=== PATIENT | male | born 1980 | race Native Hawaiian/Other Pacific Islander ===

== ENCOUNTER 2017-10-27 12:35 | Emergency (ER) | payer OTHER ==
[~2017-10-27] VITALS: Ht 177.8 cm; Wt 93.0 kg
[2017-10-27 12:35] VITALS: TEMP 97.5
[~2017-10-27 12:35] MED LIST: OMEP20CA PO; TRAM50TA PO; ZESTRIL40 MG PO
[2017-10-27 13:20] LABS: PLATELET COUNT 200 K/uL (142-355)
[2017-10-27 14:15] VITALS: BP 160/94
== END 2017-10-27 14:25 | disposition home or self-care (01) ==
LOC: ED 12:35
PROVIDERS: Specialist
DX: S61.230A Puncture wound without foreign body of right index finger without damage to nail, initial encounter (principal); L03.011 Cellulitis of right finger; W45.8XXA Other foreign body or object entering through skin, initial encounter
CPT/HCPCS: 36415; 85027; 85651; 96372; 99283; J0690

== ENCOUNTER 2017-10-30 11:05 | Inpatient (IN) | payer OTHER ==
[~2017-10-30] VITALS: Ht 177.8 cm; Wt 93.5 kg
[2017-10-30 11:12] VITALS: BP 169/119; TEMP 97.7
[2017-10-30 13:02] LABS: PLATELET COUNT 227 K/uL (142-355)
[2017-10-30 13:12] VITALS: BP 142/91
[2017-10-30 17:15] VITALS: BP 160/90; TEMP 98.3; Ht 177.8 cm; Wt 93.5 kg
[2017-10-30 20:00] VITALS: BP 115/100; TEMP 97.8
[2017-10-31] VITALS: BP 162/97; TEMP 98.2
[2017-10-31 04:00] VITALS: BP 153/99; TEMP 97.7
[2017-10-31 08:00] VITALS: BP 145/99; TEMP 97.8
[2017-10-31 12:00] VITALS: BP 149/88; TEMP 97.6
[2017-10-31 16:00] VITALS: BP 139/88; TEMP 98.1
[2017-10-31 20:00] VITALS: BP 130/82; TEMP 98.1
[2017-11-01] VITALS: BP 149/87; TEMP 97.6
[2017-11-01 04:00] VITALS: BP 172/99; TEMP 97.9
[2017-11-01 08:02] VITALS: BP 136/89; TEMP 98.1
== END 2017-11-01 13:46 | disposition home or self-care (01) | DRG 603 ==
LOC: ED 11:05 → MED/SURG 12:00
PROVIDERS: ADMIT Family Medicine
DX: L03.011 Cellulitis of right finger (principal); L02.511 Cutaneous abscess of right hand; B95.62 Methicillin resistant Staphylococcus aureus infection as the cause of diseases classified elsewhere; I10 Essential (primary) hypertension
CPT/HCPCS: 36415; 36591; 80053; 80202; 85027; 87070; 87077; 87185; 87186; 87205; 96365; 96366; 96367; 96372; 96375; 99284; J1644; J1885; J2270; J3370

== ENCOUNTER 2017-12-25 11:13 | Emergency (ER) | payer OTHER ==
[~2017-12-25] VITALS: Ht 177.8 cm; Wt 94.3 kg
[2017-12-25 11:20] VITALS: TEMP 98.2
[2017-12-25 13:30] LABS: PLATELET COUNT 186 K/uL (142-355)
[2017-12-25 13:50] LABS: POTASSIUM 3.6 mmol/L (3.6-5.2)
[2017-12-25 14:40] VITALS: BP 128/92
== END 2017-12-25 14:45 | disposition home or self-care (01) ==
LOC: ED 11:13
PROVIDERS: Family Medicine
DX: M54.9 Dorsalgia, unspecified (principal)
CPT/HCPCS: 80048; 85027; 96372; 99283; J1885

== ENCOUNTER 2019-01-27 13:48 | Emergency (ER) | payer OTHER ==
[~2019-01-27] VITALS: Ht 177.8 cm; Wt 96.2 kg
[2019-01-27 15:14] LABS: PLATELET COUNT 194 K/uL (142-355)
[2019-01-27 15:30] LABS: POTASSIUM 3.8 mmol/L (3.6-5.2)
[2019-01-27 20:23] VITALS: BP 123/87; TEMP 98.8
[2019-01-28] MEDS ORDERED: BUPR8SUB2 PO ×2 (18:45)
[2019-01-28] MEDS ORDERED: AMLODIPINE BESYLATE PO ×2 (18:45)
[2019-01-30] MEDS ORDERED: AMLODIPINE BESYLATE PO ×2 (15:19)
[2019-01-30] MEDS ORDERED: BUPR8SUB2 PO ×2 (15:20)
== END 2019-01-27 20:23 | disposition home or self-care (01) ==
LOC: ED 13:48
PROVIDERS: Family Medicine
DX: R10.13 Epigastric pain (principal); R11.2 Nausea with vomiting, unspecified; K76.0 Fatty (change of) liver, not elsewhere classified; M47.816 Spondylosis without myelopathy or radiculopathy, lumbar region
CPT/HCPCS: 36415; 80053; 80307; 80320; 81000; 82150; 83690; 85027; 96372; 99283; J1885

== ENCOUNTER 2019-01-27 18:24 | Outpatient (CLI) | payer OTHER ==
[2019-01-28] MEDS ORDERED: AMLODIPINE BESYLATE PO ×2 (18:45)
[2019-01-28] MEDS ORDERED: BUPR8SUB2 PO ×2 (18:45)
[2019-01-30] MEDS ORDERED: AMLODIPINE BESYLATE PO ×2 (15:19)
[2019-01-30] MEDS ORDERED: BUPR8SUB2 PO ×2 (15:20)
== END 2019-01-27 18:44 | disposition short-term general hospital (02) ==
LOC: AMB 18:24
DX: R10.10 Upper abdominal pain, unspecified (principal)
CPT/HCPCS: A0425; A0426

== ENCOUNTER 2019-01-28 15:00 | Observation (INO) | payer OTHER ==
[~2019-01-28] VITALS: Ht 177.8 cm; Wt 94.5 kg
[2019-01-28 16:48] VITALS: BP 138/93; TEMP 97.8
[2019-01-28 18:33] VITALS: BP 138/93; TEMP 97.8; Ht 177.8 cm; Wt 94.5 kg
[2019-01-28] MEDS ORDERED: AMLODIPINE BESYLATE PO ×2 (18:45)
[2019-01-28] MEDS ORDERED: BUPR8SUB2 PO ×2 (18:45)
[2019-01-28 20:00] VITALS: BP 110/81; TEMP 98
[2019-01-28 23:59] VITALS: BP 99/56; TEMP 97.8
[2019-01-29 04:00] VITALS: BP 120/78; TEMP 98.1
[2019-01-29 08:00] VITALS: BP 134/85; TEMP 97.4
[2019-01-29 08:56] LABS: PLATELET COUNT 161 K/uL (142-355)
[2019-01-29 09:11] LABS: POTASSIUM 4.2 mmol/L (3.6-5.2)
[2019-01-29 12:00] VITALS: BP 142/77; TEMP 98.2
[2019-01-29 16:00] VITALS: BP 128/79; TEMP 97.8
[2019-01-30] MEDS ORDERED: AMLODIPINE BESYLATE PO ×2 (15:19)
[2019-01-30] MEDS ORDERED: BUPR8SUB2 PO ×2 (15:20)
== END 2019-01-29 18:01 | disposition home or self-care (01) ==
LOC: MED/SURG 15:00
PROVIDERS: ADMIT Internal Medicine
DX: R11.2 Nausea with vomiting, unspecified (principal); R53.1 Weakness
CPT/HCPCS: 80048; 85027; 86803; 99220; G0378; G0379; J2550

== ENCOUNTER 2019-02-11 13:27 | Outpatient (CLI) | payer OTHER ==
[~2019-02-11 13:27] MED LIST changes: +AMLODIPINE BESYLATE PO; +BUPR8SUB2 PO
== END 2019-02-11 19:23 | disposition home or self-care (01) ==
LOC: RAD 13:27
DX: T14.90XA Injury, unspecified, initial encounter (principal); R52 Pain, unspecified; R22.9 Localized swelling, mass and lump, unspecified; L53.9 Erythematous condition, unspecified

== ENCOUNTER 2019-02-26 07:44 | Day surgery (SDC) | payer OTHER ==
[~2019-02-26] VITALS: Ht 30.5 cm; Wt 0.5 kg
== END 2019-02-26 10:45 | disposition home or self-care (01) ==
LOC: OR 07:44
PROC: 0DB68ZZ Excision of Stomach, Via Natural or Artificial Opening Endoscopic (ICD-10-PCS; principal; 2019-02-26)
DX: K29.50 Unspecified chronic gastritis without bleeding (principal); R11.2 Nausea with vomiting, unspecified; K44.9 Diaphragmatic hernia without obstruction or gangrene; R10.84 Generalized abdominal pain; K21.9 Gastro-esophageal reflux disease without esophagitis
CPT/HCPCS: 80074; 87522; 87535; G0432; J2001; J2250; J2405; J2704

== ENCOUNTER 2019-04-15 10:32 | Day surgery (SDC) | payer OTHER | END 2019-04-15 15:35 | disposition home or self-care (01) | LOC: OR 10:32 | PROC: 0DJD8ZZ Inspection of Lower Intestinal Tract, Via Natural or Artificial Opening Endoscopic (ICD-10-PCS; principal; 2019-04-15) | DX: K64.8 Other hemorrhoids (principal); K92.1 Melena; R19.4 Change in bowel habit; K59.00 Constipation, unspecified | CPT/HCPCS: J2001; J2250; J2704 ==

== ENCOUNTER 2020-05-17 00:47 | Emergency (ER) | payer OTHER ==
[~2020-05-17] VITALS: Ht 177.8 cm; Wt 95.3 kg
[2020-05-17 04:34] VITALS: BP 130/85; TEMP 98.5
== END 2020-05-17 04:34 | disposition home or self-care (01) ==
LOC: ED 00:47
DX: M25.552 Pain in left hip (principal); G89.29 Other chronic pain; M70.72 Other bursitis of hip, left hip
CPT/HCPCS: 96372; 99283; J1885; J2930

== ENCOUNTER 2020-10-27 08:08 | Emergency (ER) | payer OTHER ==
[~2020-10-27] VITALS: Ht 177.8 cm; Wt 95.3 kg
[2020-10-27 08:16] VITALS: BP 159/102; TEMP 98.1
[2020-10-27 08:53] LABS: POTASSIUM 4.5 mmol/L (3.6-5.2)
[2020-10-27 09:01] LABS: PARTIAL THROMBOPLASTIN TIME 22.5 SECONDS (24.5-33.6)
[2020-10-27 09:14] LABS: PLATELET COUNT 132 K/uL (142-355)
== END 2020-10-27 11:30 | disposition home or self-care (01) ==
LOC: ED 08:08
PROVIDERS: Hospitalist
DX: N39.0 Urinary tract infection, site not specified (principal); N13.2 Hydronephrosis with renal and ureteral calculous obstruction; F15.10 Other stimulant abuse, uncomplicated
CPT/HCPCS: 36415; 80053; 80307; 81000; 85027; 85610; 85730; 87077; 87086; 87088; 87186; 96360; 96361; 96365; 96366; 96375; 99284; J1170; J1885; J1956; J2405

== ENCOUNTER 2020-12-30 06:33 | Emergency (ER) | payer OTHER ==
[~2020-12-30] VITALS: Ht 177.8 cm; Wt 95.3 kg
[2020-12-30 06:46] VITALS: TEMP 97.2
[2020-12-30 07:16] LABS: PLATELET COUNT 191 K/uL (142-355)
[2020-12-30 07:23] LABS: POTASSIUM 3.5 mmol/L (3.6-5.2)
[2020-12-30 07:44] LABS: PARTIAL THROMBOPLASTIN TIME 23.9 SECONDS (24.5-33.6)
[2020-12-30 09:54] VITALS: BP 114/72
== END 2020-12-30 09:55 | disposition home or self-care (01) ==
LOC: ED 06:33
PROVIDERS: Hospitalist
DX: R10.84 Generalized abdominal pain (principal)
CPT/HCPCS: 80053; 81000; 85027; 85610; 85730; 96360; 96374; 99284; J1170; J1885; J2405

== ENCOUNTER 2021-01-02 02:36 | Emergency (ER) | payer OTHER ==
[~2021-01-02] VITALS: Ht 177.8 cm; Wt 95.3 kg
[2021-01-02 03:08] VITALS: BP 127/75; TEMP 98.1
== END 2021-01-02 03:08 | disposition home or self-care (01) ==
LOC: ED 02:36
DX: M25.551 Pain in right hip (principal); G89.29 Other chronic pain
CPT/HCPCS: 96372; 99282; 99283; J1885; J2930

== ENCOUNTER 2021-02-16 08:16 | Emergency (ER) | payer OTHER ==
[~2021-02-16] VITALS: Ht 177.8 cm; Wt 95.3 kg
[2021-02-16 08:20] VITALS: TEMP 98.7
[2021-02-16 09:21] VITALS: BP 128/84
== END 2021-02-16 09:05 | disposition home or self-care (01) ==
LOC: ED 08:16
DX: M54.41 Lumbago with sciatica, right side (principal)
CPT/HCPCS: 96372; 99282; J1885

== ENCOUNTER 2021-05-26 04:58 | Emergency (ER) | payer OTHER ==
[~2021-05-26] VITALS: Ht 177.8 cm; Wt 95.3 kg
[2021-05-26 05:00] VITALS: TEMP 98.6
[2021-05-26 05:39] LABS: PLATELET COUNT 255 K/uL (142-355)
[2021-05-26 05:48] LABS: POTASSIUM 4.2 mmol/L (3.6-5.2)
[2021-05-26 07:39] VITALS: BP 117/83
== END 2021-05-26 07:43 | disposition home or self-care (01) ==
LOC: ED 04:58
PROVIDERS: Emergency Medicine
DX: R41.0 Disorientation, unspecified (principal); R82.5 Elevated urine levels of drugs, medicaments and biological substances; N17.8 Other acute kidney failure; S92.514A Nondisplaced fracture of proximal phalanx of right lesser toe(s), initial encounter for closed fracture; W22.8XXA Striking against or struck by other objects, initial encounter; Y92.89 Other specified places as the place of occurrence of the external cause
CPT/HCPCS: 36415; 80053; 80307; 80320; 84484; 85027; 93005; 96360; 99284

== ENCOUNTER 2022-09-19 09:14 | Emergency (ER) | payer OTHER ==
[~2022-09-19] VITALS: Ht 177.8 cm; Wt 93.9 kg
[2022-09-19 09:17] VITALS: TEMP 98.4
[2022-09-19 10:12] LABS: PLATELET COUNT 207 K/uL (142-355)
[2022-09-19 10:20] LABS: POTASSIUM 3.3 mmol/L (3.6-5.2)
[2022-09-19 12:45] VITALS: BP 145/94
== END 2022-09-19 12:45 | disposition home or self-care (01) ==
LOC: ED 09:14
PROVIDERS: Emergency Medicine Emergency Medical Services
PROC: 0RSKXZZ Reposition Left Shoulder Joint, External Approach (ICD-10-PCS; principal; 2022-09-19)
DX: R56.9 Unspecified convulsions (principal); S42.252A Displaced fracture of greater tuberosity of left humerus, initial encounter for closed fracture; X58.XXXA Exposure to other specified factors, initial encounter; Y92.89 Other specified places as the place of occurrence of the external cause
CPT/HCPCS: 36415; 80053; 80320; 83735; 85027; 93005; 96361; 96365; 99285; J0360; J1885; J1953

== ENCOUNTER 2023-09-09 21:46 | Emergency (ER) | payer OTHER ==
[~2023-09-09] VITALS: Ht 177.8 cm; Wt 93.0 kg
[2023-09-09 22:57] LABS: PLATELET COUNT 107 K/uL (142-355)
[2023-09-09 22:59] LABS: POTASSIUM 3.5 mmol/L (3.6-5.2)
[2023-09-10] MEDS ORDERED: ZESTRIL40 MG PO (01:36)
[2023-09-10] MEDS ORDERED: PHENYTOIN EX100 MG PO (01:36)
[2023-09-10] MEDS ORDERED: CYCL10TA35 PO (02:11)
[2023-09-10] MEDS ORDERED: KETO10TA34 PO (02:11)
[2023-09-10 02:40] VITALS: BP 138/86; TEMP 98.1
== END 2023-09-10 02:40 | disposition home or self-care (01) ==
LOC: ED 21:46
PROVIDERS: Family Medicine
DX: R56.9 Unspecified convulsions (principal); R51.9 Headache, unspecified; M54.89 Other dorsalgia; W19.XXXA Unspecified fall, initial encounter; Y93.89 Activity, other specified; Y92.89 Other specified places as the place of occurrence of the external cause
CPT/HCPCS: 36415; 80053; 85027; 93005; 96361; 96365; 96375; 99284; J0360; J1953